=== PATIENT | female | born 1985 | race American Indian/Alaskan Native ===

== ENCOUNTER 2016-11-12 15:52 | Outpatient (CLI) | payer OTHER ==
--- NOTE | 2016-11-12 16:49 | XRay Report ---
THORACIC SPINE: History: Back pain. The bones are normally mineralized with well preserved vertebral height, alignment and interspace distances. No paraspinal soft tissue widening is noted. IMPRESSION: Normal study.
--- NOTE | 2016-11-12 16:50 | XRay Report ---
AP and lateral views of the lumbar spine. History: Low back pain. Findings: There is narrowing of the disc spaces at L4-5 and L5-S1. The vertebral body heights are normal, and alignment is normal. Bony mineralization is normal. The pedicles are intact. Impression: Degenerative disc disease at L4-5 and L5-S1.
== END 2016-11-12 15:53 | disposition home or self-care (01) ==
LOC: SPVIMAG 15:52
PROVIDERS: ATTEND Physical Medicine & Rehabilitation Pain Medicine
DX: M51.37 Other intervertebral disc degeneration, lumbosacral region (principal)
CPT/HCPCS: 72072; 72100

== ENCOUNTER 2018-05-06 15:21 | Outpatient (CLI) | payer OTHER ==
--- NOTE | 2018-05-07 09:58 | XRay Report ---
FINAL REPORT EXAM: XRAY KNEE COMPLETE LEFT HISTORY: PAIN TECHNIQUE: Four views of the bilateral knees, 8 views total PRIORS: None. FINDINGS: Right knee: The bones are normally aligned and mineralized. The joint spaces are well-preserved. There is no evidence of acute fracture. The soft tissues are unremarkable. Left knee: The bones are normally aligned and mineralized. The joint spaces are well-preserved. There is no evidence of acute fracture. The soft tissues are unremarkable. IMPRESSION: Normal bilateral knee series
== END 2018-05-06 15:22 | disposition home or self-care (01) ==
LOC: SPVIMAG 15:21
PROVIDERS: ATTEND Physical Medicine & Rehabilitation Pain Medicine
DX: M25.562 Pain in left knee (principal); M25.561 Pain in right knee